=== PATIENT | female | born 1960 | race African-American/Black ===

== ENCOUNTER 2022-03-04 12:51 | Emergency (ER) | payer BC ==
[2022-03-04 13:00] VITALS: BMI 41.3
[2022-03-04 16:53] LABS: BASO % 0.9 % (0-2.0); EOS % 2.2 % (0-4.5); HEMATOCRIT 38.3 % (32.4-45.2); HEMOGLOBIN 12.1 GM/dL (10.7-15.3); LYMPH % 27.9 % (8-40); MCH 26.5 pg (25.7-33.7); MCHC 31.7 g/dl (32.0-36.0); MEAN CELL VOLUME 83.7 fl (80-96); MEAN PLT VOLUME 7.5 fl (7.5-11.1); MONO % 10.8 % (3.8-10.2); NEUT % 58.2 % (42.8-82.8); PLATELET COUNT 293 10^3/uL (134-434); RBC 4.58 M/mm3 (3.60-5.2); RDW 15.1 % (11.6-15.6); WHITE BLOOD COUNT 8.7 K/mm3 (4.0-10.0)
[2022-03-04 17:14] LABS: CHLORIDE 106 mmol/L (98-107); SODIUM 139 mmol/L (136-145)
[2022-03-04 17:17] LABS: CALCIUM 8.9 mg/dL (8.5-10.1)
[2022-03-04 17:18] LABS: ALBUMIN 3.1 g/dl (3.4-5.0); BLOOD UREA NITROGEN 14.2 mg/dL (7-18); CO2 31 mmol/L (21-32); GLUCOSE,RANDOM 74 mg/dL (74-106)
[2022-03-04 17:21] LABS: CREATININE 0.6 mg/dL (0.55-1.3); SGOT/AST 56 U/L (15-37); SGPT/ALT 27 U/L (13-61)
[2022-03-04 17:22] LABS: BILIRUBIN,TOTAL 0.4 mg/dL (0.2-1); TOT PROT 7.4 g/dl (6.4-8.2)
[2022-03-04 17:24] LABS: ALK PHOS 59 U/L (45-117)
[2022-03-04 17:26] LABS: ANION GAP 3 MMOL/L (8-16); N-TERMINAL BNP 12.2 pg/ml (5-125)
[2022-03-04 18:03] VITALS: TEMP 98.4
[2022-03-04 18:56] VITALS: BP 138/74; PULSE 114; RESP 20
== END 2022-03-04 18:38 | disposition home or self-care (01) ==
LOC: JER 12:51
DX: R60.0 Localized edema (principal)
CPT/HCPCS: 36415; 73562-TC-LT-FY; 80053; 83880; 85025; 93970-TC; 99284-25

== ENCOUNTER 2022-03-22 15:30 | Inpatient (IN) | payer BC ==
[2022-03-22 16:03] VITALS: BMI 47.2
[2022-03-22 17:42] LABS: BASO % 0.8 % (0-2.0); EOS % 1.9 % (0-4.5); HEMATOCRIT 37.3 % (32.4-45.2); HEMOGLOBIN 12.2 GM/dL (10.7-15.3); LYMPH % 19.4 % (8-40); MCH 27.3 pg (25.7-33.7); MCHC 32.8 g/dl (32.0-36.0); MEAN CELL VOLUME 83.4 fl (80-96); MEAN PLT VOLUME 7.5 fl (7.5-11.1); MONO % 10.9 % (3.8-10.2); PLATELET COUNT 290 10^3/uL (134-434); RBC 4.47 M/mm3 (3.60-5.2); RDW 15.6 % (11.6-15.6); WHITE BLOOD COUNT 11.7 K/mm3 (4.0-10.0)
[2022-03-22 17:48] LABS: INR 0.97 (0.83-1.09); PROTHROMBIN TIME (PATIENT) 11.2 SEC (9.7-13.0)
[2022-03-22 17:51] LABS: ACTIVATED PTT 20.2 SECONDS (25.2-36.5)
[2022-03-22 17:55] LABS: CALCIUM 8.8 mg/dL (8.5-10.1)
[2022-03-22 17:56] LABS: ALBUMIN 3.3 g/dl (3.4-5.0)
[2022-03-22 17:59] LABS: CREATININE 0.6 mg/dL (0.55-1.3)
[2022-03-22 18:01] LABS: BILIRUBIN,TOTAL 0.4 mg/dL (0.2-1); TOT PROT 7.5 g/dl (6.4-8.2)
[2022-03-22 19:20] LABS: BLOOD UREA NITROGEN 13.4 mg/dL (7-18); CALCIUM 9.3 mg/dL (8.5-10.1)
[2022-03-22 19:24] LABS: CREATININE 0.6 mg/dL (0.55-1.3)
[2022-03-22] MEDS ORDERED: ACETAMINOPHEN 1000 MG/100 ML BAG IVPB PRN (20:50)
[2022-03-22] MEDS ORDERED: INSULIN SLIDING SCALE (NOVOLOG) 1 VIAL SQ SCH (22:00)
[2022-03-22] MEDS ORDERED: ENOXAPARIN NA (PORCINE) 40 MG/0.4 ML DISP.SYRIN SQ SCH (22:00)
[2022-03-22] MEDS: ENOXAPARIN 100 MG, ENOXAPARIN 40 MG SQ SCH (23:09)
[2022-03-22] MEDS ORDERED: ENOXAPARIN NA (PORCINE) 40 MG/0.4 ML DISP.SYRIN SQ ONE (23:11)
[2022-03-22] MEDS ORDERED: ENOXAPARIN NA (PORCINE) 100 MG/1 ML DISP.SYRIN SQ ONE (23:11)
[2022-03-23 07:26] LABS: BASO % 0.8 % (0-2.0); EOS % 2.1 % (0-4.5); HEMATOCRIT 34.3 % (32.4-45.2); HEMOGLOBIN 11.4 GM/dL (10.7-15.3); LYMPH % 24.1 % (8-40); MCH 27.9 pg (25.7-33.7); MCHC 33.3 g/dl (32.0-36.0); MEAN CELL VOLUME 83.9 fl (80-96); MEAN PLT VOLUME 7.2 fl (7.5-11.1); PLATELET COUNT 260 10^3/uL (134-434); RBC 4.08 M/mm3 (3.60-5.2); RDW 15.7 % (11.6-15.6); WHITE BLOOD COUNT 9.2 K/mm3 (4.0-10.0)
[2022-03-23 07:50] LABS: ALBUMIN 3.2 g/dl (3.4-5.0); CALCIUM 8.8 mg/dL (8.5-10.1)
[2022-03-23 07:51] LABS: BLOOD UREA NITROGEN 14.8 mg/dL (7-18)
[2022-03-23 07:53] LABS: CREATININE 0.6 mg/dL (0.55-1.3)
[2022-03-23 07:55] LABS: BILIRUBIN,TOTAL 0.5 mg/dL (0.2-1); TOT PROT 6.6 g/dl (6.4-8.2)
[2022-03-23] MEDS ORDERED: ENOXAPARIN NA (PORCINE) 40 MG/0.4 ML DISP.SYRIN SQ ONE (10:13)
[2022-03-23] MEDS ORDERED: ENOXAPARIN NA (PORCINE) 100 MG/1 ML DISP.SYRIN SQ ONE (10:13)
[2022-03-23] MEDS: ENOXAPARIN 100 MG, ENOXAPARIN 40 MG SQ SCH ×2 (10:40→22:14)
[2022-03-23] MEDS ORDERED: ACETAMINOPHEN 325 MG TABLET (FP) PO PRN (20:43)
[2022-03-24 08:23] LABS: BASO % 0.8 % (0-2.0); EOS % 3.1 % (0-4.5); HEMATOCRIT 34.7 % (32.4-45.2); HEMOGLOBIN 11.7 GM/dL (10.7-15.3); LYMPH % 25.9 % (8-40); MCH 28.1 pg (25.7-33.7); MCHC 33.7 g/dl (32.0-36.0); MEAN CELL VOLUME 83.4 fl (80-96); MEAN PLT VOLUME 7.4 fl (7.5-11.1); NEUT % 59.2 % (42.8-82.8); PLATELET COUNT 242 10^3/uL (134-434); RBC 4.17 M/mm3 (3.60-5.2); RDW 15.5 % (11.6-15.6); WHITE BLOOD COUNT 8.3 K/mm3 (4.0-10.0)
[2022-03-24 08:25] LABS: INR 1.09 (0.83-1.09); PROTHROMBIN TIME (PATIENT) 12.5 SEC (9.7-13.0)
[2022-03-24 08:33] LABS: ALBUMIN 3.1 g/dl (3.4-5.0); CALCIUM 9.1 mg/dL (8.5-10.1); MAGNESIUM 1.9 mg/dL (1.8-2.4)
[2022-03-24 08:34] LABS: BLOOD UREA NITROGEN 16.3 mg/dL (7-18)
[2022-03-24 08:36] LABS: CREATININE 0.6 mg/dL (0.55-1.3); PHOSPHOROUS 4.3 mg/dL (2.5-4.9)
[2022-03-24 08:38] LABS: BILIRUBIN,TOTAL 0.5 mg/dL (0.2-1); TOT PROT 6.6 g/dl (6.4-8.2)
[2022-03-24] MEDS ORDERED: ENOXAPARIN NA (PORCINE) 100 MG/1 ML DISP.SYRIN SQ SCH (08:54)
[2022-03-24] MEDS ORDERED: ENOXAPARIN SQ SCH (10:00)
[2022-03-24] MEDS ORDERED: FLU VACC QS2022-23(6MOS UP)/PF 60 MCG/0.5 ML SYRINGE IM ONE (10:00)
[2022-03-24 11:17] VITALS: BP 122/65; PULSE 82; RESP 18; TEMP 98.3
== END 2022-03-24 18:20 | disposition home or self-care (01) | DRG 176 ==
LOC: SUPCPDRO 15:30 → JER 15:30 → JERBED 20:01 → J4W 03-23 21:48
PROVIDERS: ADMIT Internal Medicine; ATTEND Internal Medicine
DX: I26.99 Other pulmonary embolism without acute cor pulmonale (principal); Z68.42 Body mass index [BMI] 45.0-49.9, adult; R60.0 Localized edema; E66.01 Morbid (severe) obesity due to excess calories
CPT/HCPCS: 36415; 71045-TC-FY; 71275-TC; 80048; 80053; 82962; 83735; 84100; 84439; 84443; 84484; 85025; 85379; 85610; 85730; 93005; 93010; 93970-TC; 99285-25; C9803-CS; Q2036; Q9967; U0003; U0005

== ENCOUNTER 2022-12-07 12:00 | Emergency (ER) | payer BC ==
[2022-12-07 12:14] VITALS: BP 151/75; PULSE 102; RESP 18; TEMP 98.2; BMI 36.9
== END 2022-12-07 13:05 | disposition home or self-care (01) ==
LOC: JER 12:00
DX: K59.00 Constipation, unspecified (principal)
CPT/HCPCS: 99282-25

== ENCOUNTER 2023-05-21 09:43 | Day surgery (SDC) | payer OTHER ==
[2023-05-21 10:13] VITALS: BMI 40.1
[2023-05-21 12:06] VITALS: TEMP 97.1
[2023-05-21 12:26] VITALS: BP 138/67; PULSE 93; RESP 18
== END 2023-05-21 12:40 | disposition home or self-care (01) ==
LOC: FASU-ENDO 09:43
PROVIDERS: ATTEND Internal Medicine Gastroenterology
PROC: 0DJ08ZZ Inspection of Upper Intestinal Tract, Via Natural or Artificial Opening Endoscopic (ICD-10-PCS; principal; 2023-05-21 11:24)
DX: R10.13 Epigastric pain (principal); K31.89 Other diseases of stomach and duodenum